=== PATIENT | female | born 1965 | race Caucasian/White ===

== ENCOUNTER → 2017-02-20 | Outpatient (CLI) | payer BC ==
[~2017-02-20] MED LIST: ACET500T76 PO; BETA15OI6 EACH EAR; BIOT800T PO; CALCIUM PO; HYDR-3240 PO; IRON PO; LACT1CAP11 PO; LEVO500T33 PO; POLY454P3 PO; VARE1TAB21 PO; [UNRECOGNIZED DRUG - CODE] SQ
== END | disposition home or self-care (01) ==
LOC: STAR 14:34
PROVIDERS: ATTEND Otolaryngology
DX: Z02.9 Encounter for administrative examinations, unspecified (principal)

== ENCOUNTER 2017-02-25 05:53 | Day surgery (SDC) | payer BC, OTHER ==
[~2017-02-25] VITALS: Ht 157.5 cm; Wt 54.8 kg
[2017-02-25] MEDS ORDERED: LACTATED RINGERS 1,000 ML IV SCH (06:25)
[2017-02-25 06:27] VITALS: BP 173/105
[2017-02-25] MEDS ORDERED: MIDAZOLAM 1 MG/ML, 2ML ONE (06:40)
[2017-02-25] MEDS ORDERED: FENTANYL PF 250 MCG/5ML ONE (06:41)
[2017-02-25] MEDS ORDERED: SCOPOLAMINE PATCH, 1.5MG PATCH.TD72 TD ONE ×2 (06:58→07:00)
[2017-02-25] MEDS ORDERED: CIPROFLOXACIN DEXAMETHASONE EAR SUSP 7.5ML ONE (07:14)
[2017-02-25] MEDS ORDERED: LIDOCAINE/PF 1%-EPI 1:200K, 30ML ONE (07:14)
[2017-02-25] MEDS ORDERED: MUPIROCIN OINT 2%, 22GM ONE (07:15)
[2017-02-25] MEDS ORDERED: BACITRACIN OINT 500U/GM, 15 GM ONE (07:15)
[2017-02-25] MEDS ORDERED: NEOSPORIN OINT, 15GM ONE (07:15)
[2017-02-25] MEDS ORDERED: LIDOCAINE 1%-EPI 1:100K, 50ML ONE (07:20)
[2017-02-25] MEDS ORDERED: OXYcodone 5 MG/5 ML ORAL.SOL UDC PO PRN (07:30)
[2017-02-25] MEDS ORDERED: LABETALOL 5MG/ML, 20ML IV PRN (07:30)
[2017-02-25] MEDS ORDERED: PROMETHAZINE 25 MG/ML, 1ML IV PRN (07:30)
[2017-02-25] MEDS ORDERED: ACETAMINOPHEN 325 MG TABLET PO PRN (07:30)
[2017-02-25] MEDS ORDERED: ONDANSETRON 2MG/ML, 2ML IVPush PRN (07:30)
[2017-02-25] MEDS ORDERED: MEPERIDINE/PF 25MG/0.5ML IVPush PRN (07:30)
[2017-02-25] MEDS ORDERED: HYDROmorphone 1 MG/ML, 1ML IV PRN (07:30)
[2017-02-25] MEDS ORDERED: hydrALAzine 20 MG/ML, 1ML IV PRN (07:30)
[2017-02-25] MEDS ORDERED: METOCLOPRAMIDE 5 MG/ML, 2ML IV PRN (07:30)
[2017-02-25] MEDS ORDERED: ROCURONIUM 10 MG/ML ONE (07:36)
[2017-02-25] MEDS ORDERED: CEFAZOLIN 1,000 MG ONE (07:36)
[2017-02-25] MEDS ORDERED: ONDANSETRON 2MG/ML, 2ML ONE (07:36)
[2017-02-25] MEDS ORDERED: DEXAMETHASONE 4 MG/ML, 5ML ONE (07:36)
[2017-02-25] MEDS ORDERED: PROPOFOL 10 MG/ML, 20ML ONE (07:36)
[2017-02-25] MEDS ORDERED: SUCCINYLCHOLINE 20 MG/ML, 10ML ONE (07:36)
[2017-02-25] MEDS ORDERED: PHENYLEPHRINE 10 MG/ML ONE (07:36)
[2017-02-25] MEDS ORDERED: PROPOFOL 10 MG/ML, 50ML ONE (07:36)
[2017-02-25] MEDS: FENTANYL PF 100 MCG/2ML IV PRN ×2 (10:38→10:45)
== END 2017-02-25 12:25 | disposition home or self-care (01) ==
LOC: OUT 05:53 → MERGE 07:30 → OUT 12:25
PROVIDERS: ATTEND Otolaryngology
DX: H72.02 Central perforation of tympanic membrane, left ear (principal); H71.22 Cholesteatoma of mastoid, left ear
CPT/HCPCS: 69641; 88304; J0330; J0690; J1100; J2250; J2370; J2405; J2704; J3010; J3490; J7120